=== PATIENT | female | born 1995 | race Caucasian/White ===

== ENCOUNTER 2020-08-09 11:00 | Inpatient (IN) | payer BC, MEDICAID, OTHER ==
[~2020-08-09] VITALS: Ht 177.8 cm; Wt 94.5 kg
--- NOTE | 2020-08-09 11:25 | NUR ---
C/O LOWER ABD PAIN SINCE 5AM TODAY, +VOMITING, PT STATES SHE HAS ANXIETY. PT PLACED ON VITALS MONITORS.
[2020-08-09] MEDS ORDERED: LORazepam 2 MG/ML, 1ML ONE (11:35)
[2020-08-09] MEDS ORDERED: ONDANSETRON 2MG/ML, 2ML ONE ×2 (11:35→15:55)
[2020-08-09 11:53] LABS: BASOPHILS % (AUTO) 0 % (0-1); EOSINOPHILS % (AUTO) 0 % (1-7); LYMPHOCYTES % (AUTO) 9 % (22-44); MEAN CORPUSCULAR HEMOGLOBIN 29.9 pg (27.0-34.8); MEAN CORPUSCULAR HGB CONC 35.4 g/dL (32.4-35.8); MEAN PLATELET VOLUME 8.4 fL (7.4-10.4); MONOCYTES % (AUTO) 3 % (2-9); NEUTROPHILS % (AUTO) 87 % (42-75); PLATELET COUNT 240 x10^3/uL (130-400)
[2020-08-09] MEDS ORDERED: LORazepam 2 MG/ML, 1ML IVPush ONE (12:00)
[2020-08-09] MEDS ORDERED: SODIUM CHLORIDE FLUSH 10ML SYR IVF ONE (12:00)
[2020-08-09] MEDS ORDERED: SODIUM CHLORIDE 0.9% 1,000ML IVBOLUS ONE (12:00)
[2020-08-09] MEDS ORDERED: ONDANSETRON 2MG/ML, 2ML IVPush ONE ×2 (12:00→16:00)
[2020-08-09 12:04] LABS: ANION GAP 7 mmol/L (5-15); CALCIUM 8.9 mg/dL (8.5-10.1); CHLORIDE 108 mmol/L (98-107)
[2020-08-09 12:07] LABS: MD NO
[2020-08-09 12:10] LABS: ALANINE AMINOTRANSFERASE 20 U/L (12-78); ALKALINE PHOSPHATASE 59 U/L (45-117); BILIRUBIN,TOTAL 0.4 mg/dL (0.2-1.0); CREATININE 0.76 mg/dL (0.55-1.02); TOTAL PROTEIN 8.1 g/dL (6.4-8.2)
--- NOTE | 2020-08-09 12:44 | NUR ---
PT ASSISTED TO BR, PT WITH STEADY GAIT, PT ROCKING BACK AND FORTH WHILE ON GURNEY, DROWSY, REPEATS ASKING "WHAT DID YOU GIVE ME IN MY IV" PT EDUCATED WHAT MEDICATION SHE RECIEVED. VSS. FAMILY AT BEDSIDE
[2020-08-09 13:05] LABS: MICROSCOPIC NOT IND
[2020-08-09] MEDS ORDERED: PROCHLORPERAZINE 5 MG/ML, 2ML ONE (13:53)
[2020-08-09] MEDS ORDERED: PROCHLORPERAZINE 5 MG/ML, 2ML IVPush ONE (14:00)
--- NOTE | 2020-08-09 14:18 | NUR ---
PT CALLING FREQUENTLY, PT GIVEN ADDITIONAL MEDICATION PER MAR, PT NOW RESTING ON ROX. FRANCISCO. ERMD UPDATED
--- NOTE | 2020-08-09 15:41 | NUR ---
TASK RN: PT NAUSEOUS AND VOMITING AFTER MINIMAL PO INTAKE. REPORTS ABD 'DISCOMFORT' AND IS RESTLESS IN [facility]. ERP AWARE.
[2020-08-09] MEDS ORDERED: DIPHENHYDRAMINE 50 MG/ML, 1ML ONE (15:55)
[2020-08-09] MEDS ORDERED: DIPHENHYDRAMINE 50 MG/ML, 1ML IV ONE (16:00)
--- NOTE | 2020-08-09 16:03 | NUR ---
TASK RN: PT MEDICATED PER EMAR FOR CONTINUED N/V. BENADRYL HELD PT REQUIRES FREQUENT STIMULATION TO REMAIN AWAKE. PT/MOTHER UPDATED TO POC (ADMIT) AND DEMONSTRATES UNDERSTANDING.
[2020-08-09] MEDS ORDERED: HYDR-826 PO (16:05)
[2020-08-09] MEDS ORDERED: METOCLOPRAMIDE 5 MG/ML, 2ML IVPush PRN (17:00)
[2020-08-09] MEDS ORDERED: DOCUSATE 100 MG CAPSULE PO PRN (17:00)
[2020-08-09] MEDS ORDERED: MELATONIN 5 MG TABLET PO PRN (17:00)
[2020-08-09] MEDS ORDERED: morphine SULFATE 10 MG/ML, 1ML IVPush PRN (17:00)
[2020-08-09] MEDS ORDERED: ENOXAPARIN 40 MG/0.4 ML SQ SCH (17:00)
[2020-08-09] MEDS ORDERED: ACETAMINOPHEN 325 MG TABLET PO PRN (17:00)
[2020-08-09] MEDS ORDERED: ONDANSETRON 2MG/ML, 2ML IVPush PRN (17:00)
[2020-08-09] MEDS ORDERED: POLYETHYLENE GLYCOL 17 GM PACKET PO PRN (17:00)
[2020-08-09] MEDS ORDERED: ENALAPRILAT 1.25 MG/ML, 2ML IVPush PRN (17:00)
--- NOTE | 2020-08-09 17:17 | NUR ---
PT TO US AT THIS TIME.
[2020-08-09] MEDS ORDERED: KETOROLAC 30 MG/1 ML IVPush ONE (17:30)
[2020-08-09] MEDS ORDERED: KETOROLAC 30 MG/1 ML ONE (17:42)
[2020-08-09] MEDS ORDERED: POTASSIUM CHLORIDE 20 MEQ in SODIUM CHLORIDE 0.9% 250 ML IV ONE (18:30)
--- NOTE | 2020-08-09 18:49 | NUR ---
report recieved from lizett hansen
--- NOTE | 2020-08-09 19:18 | NUR ---
PT RESTING IN [facility], LABS DRAWN, AWAITING CALL BACK FOR REPORT
[2020-08-09 19:25] LABS: INTERNATIONAL NORMALIZED RATIO 1.08 (0.93-1.1); PROTHROMBIN TIME 11.4 Seconds (9.6-11.5)
--- NOTE | 2020-08-09 19:27 | NUR ---
REPORT GIVEN TO ONEIL ANGEL
[2020-08-09 20:00] VITALS: BP 91/53
[2020-08-09 20:28] VITALS: BP 104/61
[2020-08-09] MEDS: PROMETHAZINE 25 MG/ML, 1ML IM PRN (21:09)
[2020-08-10 00:49] VITALS: BP 134/75
[2020-08-10] MEDS: PROMETHAZINE 25 MG/ML, 1ML IM PRN ×4 (02:48→21:45)
[2020-08-10 06:08] LABS: BASOPHILS % (AUTO) 0 % (0-1); EOSINOPHILS % (AUTO) 0 % (1-7); LYMPHOCYTES % (AUTO) 12 % (22-44); MD NO; MEAN CORPUSCULAR HEMOGLOBIN 29.6 pg (27.0-34.8); MEAN CORPUSCULAR HGB CONC 34.9 g/dL (32.4-35.8); MEAN PLATELET VOLUME 8.3 fL (7.4-10.4); MONOCYTES % (AUTO) 7 % (2-9); NEUTROPHILS % (AUTO) 81 % (42-75); PLATELET COUNT 200 x10^3/uL (130-400); RED BLOOD COUNT 4.25 x10^6/uL (3.82-5.3); RED CELL DISTRIBUTION WIDTH 13.9 % (9.6-15.2)
[2020-08-10 06:19] LABS: ALBUMIN 3.6 g/dL (3.4-5.0); ANION GAP 5 mmol/L (5-15); CALCIUM 8.8 mg/dL (8.5-10.1); CHLORIDE 107 mmol/L (98-107)
[2020-08-10 06:23] LABS: ALANINE AMINOTRANSFERASE 17 U/L (12-78); ALKALINE PHOSPHATASE 43 U/L (45-117); BILIRUBIN,TOTAL 0.4 mg/dL (0.2-1.0); CREATININE 0.59 mg/dL (0.55-1.02); TOTAL PROTEIN 7.3 g/dL (6.4-8.2)
[2020-08-10 06:24] VITALS: BP 114/76
[2020-08-10] MEDS: LACTATED RINGERS 1,000 ML IV SCH (08:52)
[2020-08-10] MEDS: PANTOPRAZOLE 40MG TABLET PO SCH (10:18)
[2020-08-10] MEDS: SERTRALINE 50MG TABLET PO SCH (10:19)
[2020-08-10] MEDS ORDERED: hydrOXyzine 10MG TABLET PO ONE (11:00)
[2020-08-10] MEDS ORDERED: SENNA/DOCUSATE TABLET PO ONE (12:00)
[2020-08-10 12:30] VITALS: BP 119/80
[2020-08-10] MEDS ORDERED: LORazepam 1MG TABLET ONE (13:25)
[2020-08-10 14:32] LABS: AMPHETAMINE SCREEN, URINE Negative (Negative); BARBITURATE SCREEN, URINE Negative (Negative); BENZODIAZEPINE SCREEN, URINE Negative (Negative); CANNABINOID SCREEN, URINE Positive (Negative); COCAINE SCREEN, URINE Negative (Negative); METHADONE SCREEN, URINE Negative (Negative); OPIATE SCREEN, URINE Negative (Negative)
[2020-08-10] MEDS ORDERED: OMNIPAQUE 350 MG/ML, 100ML BOTTLE ONE (17:31)
[2020-08-10 20:52] VITALS: BP 141/87
[2020-08-10] MEDS ORDERED: LORazepam 1MG TABLET PO ONE (22:30)
[2020-08-11 02:12] VITALS: BP 122/78
[2020-08-11] MEDS: LACTATED RINGERS 1,000 ML IV SCH ×2 (03:45→13:27)
[2020-08-11] MEDS: PANTOPRAZOLE 40MG TABLET PO SCH (06:00)
[2020-08-11 07:24] VITALS: BP 136/83
[2020-08-11] MEDS: SERTRALINE 50MG TABLET PO SCH (08:18)
[2020-08-11 10:48] VITALS: BP 115/75
[2020-08-11] MEDS ORDERED: ONDANSETRON ODT 4 MG PO ONE (13:30)
[2020-08-11] MEDS ORDERED: QUETIAPINE 25MG TABLET PO ONE (13:30)
[2020-08-11 13:42] VITALS: BP 129/84
[2020-08-11] MEDS ORDERED: METO5VIA30 PO (15:53)
[2020-08-11] MEDS ORDERED: SERT50TA28 PO (15:53)
== END 2020-08-11 17:01 | disposition home or self-care (01) | DRG 392 ==
LOC: ED 13:03 → EDIP 16:22 → 3N 19:39 → DCLOUNGE 08-11 16:52
PROVIDERS: ADMIT Family Medicine; ATTEND Hospitalist
DX: R10.9 Unspecified abdominal pain (principal); E87.6 Hypokalemia; F12.90 Cannabis use, unspecified, uncomplicated; F29 Unspecified psychosis not due to a substance or known physiological condition; F32.9 Major depressive disorder, single episode, unspecified; F41.0 Panic disorder [episodic paroxysmal anxiety]; F41.1 Generalized anxiety disorder; D72.829 Elevated white blood cell count, unspecified; R11.2 Nausea with vomiting, unspecified; K29.70 Gastritis, unspecified, without bleeding; N94.6 Dysmenorrhea, unspecified; Z79.899 Other long term (current) drug therapy; Z79.01 Long term (current) use of anticoagulants; Z79.891 Long term (current) use of opiate analgesic
CPT/HCPCS: 36415; 74022; 74177; 76856; 80053; 80307; 81003; 82728; 83690; 83735; 84100; 84443; 84703; 85025; 85610; 85730; 87491; 87591; 99285; G0378; J1885; J2405; J2550; J3480; Q0162; Q9967; J0780; J2060; J7030; J7050; J7120